=== PATIENT | female | born 1995 | race Caucasian/White ===

== ENCOUNTER 2017-01-02 08:15 | Emergency (ER) | payer BC, MEDICAID ==
[~2017-01-02] VITALS: Ht 157.5 cm; Wt 51.0 kg
[2017-01-02 08:17] VITALS: Ht 157.5 cm; Wt 51.0 kg
[2017-01-02 08:56] LABS: BASOPHILS % 0.5 % (0.0-2.0); EOSINOPHILS # 0.3 10^3/ul (0.0-0.5); EOSINOPHILS % 4.6 % (0.0-7.0); HEMOGLOBIN 13.3 g/dl (12.0-16.0); LYMPHOCYTES # 2.1 10^3/ul (0.8-2.9); LYMPHOCYTES % 34.2 % (15.0-51.0); MEAN CORPUSCULAR HEMOGLOBIN 30.9 pg (29.0-33.0); MEAN CORPUSCULAR HGB CONC 34.1 g/dl (32.0-37.0); MEAN CORPUSCULAR VOLUME 90.7 fl (82.0-101.0); MEAN PLATELET VOLUME 10.2 fl (7.4-10.4); MONOCYTE # 0.8 10^3/ul (0.3-0.9); MONOCYTES % 12.3 % (0.0-11.0); NEUTROPHIL # 2.9 10^3/ul (1.6-7.5); NEUTROPHILS % 48.1 % (39.0-77.0); PLATELET COUNT 261 10^3/UL (140-415); WHITE BLOOD COUNT 6.1 10^3/ul (4.8-10.8)
--- NOTE | 2017-01-02 08:58 | ERD ---
ER Documentation Chief Complaint Date/Time DATE: 01/02/17 TIME: 08:52 Chief Complaint 4/10 abd pain x 3 days HPI 21-year-old female complaining of mid abdominal pain 3 days. Patient stated that the pain had a sudden onset, shortly after she ate. The shape is sharp, but comes and goes. Eating does not make the pain worse, nothing makes the pain better. She does not have abdominal pain at this time. Denies fever or chills. Denies vomiting or diarrhea. Denies dysuria. Patient also complaining of a left breast mass 1 year. Denies pain or tenderness, denies changing size. Denies breast discharge. Denies recent weight loss. ROS All systems reviewed and are negative except as per history of present illness. Medications Home Meds Active Scripts Acetaminophen* (Tylophen*) 500 Mg Capsule, 1 CAP PO Q6H Y for PAIN AND OR ELEVATED TEMP, #20 CAP Prov:ANDRÉS LENNON Mic SACK KEEPER 01/02/17 Reported Medications [None] No Conflict Check 01/07/13 Allergies Allergies: Coded Allergies: No Known Allergy (Unverified , 01/02/17) PMhx/Soc Medical and Surgical Hx: pt denies Medical Hx History of Surgery: No Anesthesia Reaction: No Hx Neurological Disorder: No Hx Respiratory Disorders: No Hx Cardiac Disorders: No Hx Psychiatric Problems: No Hx Miscellaneous Medical Probl: No Hx Alcohol Use: Yes (Occasional) Hx Substance Use: No Hx Tobacco Use: No Smoking Status: Never smoker Physical Exam Vitals Vital Signs Date Time Temp Pulse Resp B/P Pulse Ox O2 Delivery O2 Flow Rate FiO2 01/02/17 10:26 97.9 70 16 118/64 98 Room Air 01/02/17 08:17 97.5 90 18 129/59 98 Physical Exam General: Well-developed, well-nourished, conscious and coherent, in no distress Skin: Warm and dry without rash, good texture and turgor Head: Normocephalic without evidence of trauma Eyes: Sclera and conjunctivae normal; pupils equal, round, and reactive to light; extraocular movements are intact Neck: Supple without meningismus or adenopathy. Carotids are equal. Trachea midline. No bruits or JVD Chest: Normal AP diameter. Good expansion without retractions. Nontender. Lungs are clear to auscultate bilaterally with good tidal volume Heart: Regular rate and rhythm. No murmur, rub, or gallops heard Breast: A 2 cm mobile mass noted at 12 o'clock position of the left breast, 3 cm from the nipple. The mass is not tender. Breast exam otherwise normal bilaterally, no axillary lymph nodes. Abdomen: Soft and nontender without masses, guarding, or rebound. Bowel sounds are active. No hepatosplenomegaly Back: Without spinal or CVA tenderness Extremities: Full range of motion. Good strength bilaterally. No clubbing, cyanosis, or edema. Peripheral pulses are intact. Sensation intact Neuro: Alert and oriented 4, GCS 15. Cranial nerves grossly intact. Motor and sensory exams nonfocal. Moves all extremities. Speech clear. Gait normal Result Diagram: 01/02/1743 01/02/1743 Results 24 hrs Laboratory Tests Test 01/02/17 08:43 White Blood Count 6.110^3/ul Red Blood Count 4.3010^6/ul Hemoglobin 13.3g/dl Hematocrit 39.0% Mean Corpuscular Volume 90.7fl Mean Corpuscular Hemoglobin 30.9pg Mean Corpuscular Hemoglobin Concent 34.1g/dl Red Cell Distribution Width 12.0% Platelet Count 94562^3/UL Mean Platelet Volume 10.2fl Neutrophils % 48.1% Lymphocytes % 34.2% Monocytes % 12.3% Eosinophils % 4.6% Basophils % 0.5% Nucleated Red Blood Cells % 0.0/100WBC Neutrophils # 2.910^3/ul Lymphocytes # 2.110^3/ul Monocytes # 0.810^3/ul Eosinophils # 0.310^3/ul Basophils # 0.010^3/ul Nucleated Red Blood Cells # 0.010^3/ul Urine Color YELLOW Urine Clarity CLEAR Urine pH 6.0 Urine Specific [place] 1.018 Urine Ketones NEGATIVEmg/dL Urine Nitrite NEGATIVEmg/dL Urine Bilirubin NEGATIVEmg/dL Urine Urobilinogen NEGATIVEmg/dL Urine Leukocyte Esterase NEGATIVELeu/ul Urine Microscopic RBC 17/HPF Urine Microscopic WBC 2/HPF Urine Hemoglobin 2+mg/dL Urine Glucose NEGATIVEmg/dL Urine Total Protein NEGATIVEmg/dl Sodium Level 144mmol/L Potassium Level 4.0mmol/L Chloride Level 103mmol/L Carbon Dioxide Level 26mmol/L Anion Gap 19 Blood Urea Nitrogen 10mg/dl Creatinine 0.56mg/dl Glucose Level 92mg/dl Calcium Level 9.4mg/dl Total Bilirubin 0.3mg/dl Direct Bilirubin 0.00mg/dl Indirect Bilirubin 0.3mg/dl Aspartate Amino Transf (AST/SGOT) 23IU/L Alanine Aminotransferase (ALT/SGPT) 29IU/L Alkaline Phosphatase 68IU/L Total Protein 7.9g/dl Albumin 4.5g/dl Globulin 3.40g/dl Albumin/Globulin Ratio 1.32 Lipase 52U/L PROCEDURE: Left breast ultrasound, complete. CLINICAL INDICATION: 21-year-old female with multiple palpable mass at the 12 o'clock left breast. TECHNIQUE: Whole breast ultrasound is performed. COMPARISON: None FINDINGS: Ultrasound of the breast shows a circumscribed oval 1.7 x 1.6 x 1.1 cm mass at the 12 o'clock left breast correlating to the palpable lump. The remainder of the left breast ultrasound is unremarkable. There is no evidence of axillary adenopathy. IMPRESSION: Benign appearing oval circumscribed 1.7 cm mass at the 12 o'clock left breast correlating to the palpable mobile lump. 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 Recommend 6-month follow-up targeted left breast ultrasound at a dedicated breast imaging Center to confirm benignity. BIRADS 3 (Probably benign). Short-term follow-up is advised. RPTAT: GG .Kervin Bhatt MD, MD Date Time Electronically viewed and signed by .Kervin Bhatt MD, on 01/02/2017 09:51 .L/ CC: ANDRÉS LENNON SACK KEEPER Procedures/MDM Well-appearing 21-year-old female presented ED with intermittent periumbilical abdominal pain 3 days. She does not have any abdominal pain at this time, nausea she have any abdominal tenderness on exam. CBC, CMP, lipase, UA are all unremarkable. I doubt acute appendicitis, cholecystitis, pancreatitis, bowel obstruction, or other acute abdomen. I doubt urinary tract infection or pyelonephritis. Urine is negative. I doubt ectopic , ovarian torsion, or ruptured ovarian cyst. Patient's symptoms is consistent with that of viral gastroenteritis. Patient does not have any active vomiting, is able to maintain by mouth fluid intake. Patient also complaining of left breast mass 1 year. Ultrasound left breast showed a benign mass, likely fibroadenoma. Patient advised to follow-up with her PCP for further evaluation. Patient appears well, stable for discharge and outpatient management. Medical decision making shared with patient and family. Education provided to patient and family. Patient and family expressed understanding of the plan. Medications on discharge: Tylenol. Follow-up: Primary care provider in 2-3 days or return to ED if worse. Disclaimer: Inadvertent spelling and grammatical errors are likely due to EHR/ dictation software use and do not reflect on the overall quality of patient care. Also, please note that the electronic time recorded on this note does not necessarily reflect the actual time of the patient encounter. Departure Diagnosis: Primary Impression: Abdominal pain Abdominal location: periumbilical Qualified Code: R10.33 - Periumbilical abdominal pain Additional Impression: Left breast mass Condition: Stable ANDRÉS LENNON NP Jan 02, 2017 08:58
[2017-01-02 09:01] LABS: ADD UMIC YES; UR ASCORBIC ACID NEGATIVE (NEGATIVE); UR BILIRUBIN (Dip) NEGATIVE (NEGATIVE); UR BLOOD (Dip) 2+ mg/dL (NEGATIVE); UR CLARITY CLEAR (CLEAR); UR COLOR YELLOW (YELLOW); UR GLUCOSE (Dip) NEGATIVE (NEGATIVE); UR KETONES (Dip) NEGATIVE (NEGATIVE); UR LEUKOCYTE ESTERASE (Dip) NEGATIVE Leu/ul (NEGATIVE); UR NITRITE (Dip) NEGATIVE (NEGATIVE); UR RBC 17 /HPF (0-5); UR SPECIFIC GRAVITY (Dip) 1.018 (1.003-1.030); UR TOTAL PROTEIN (Dip) NEGATIVE (NEGATIVE); UR UROBILINOGEN (Dip) NEGATIVE (NEGATIVE)
[2017-01-02 09:12] LABS: ALBUMIN 4.5 g/dl (3.3-4.9); ALBUMIN/GLOBULIN RATIO 1.32; BILIRUBIN,INDIRECT 0.3 mg/dl (0-1.1); BILIRUBIN,TOTAL 0.3 mg/dl (0.2-1.3); CALCIUM 9.4 mg/dl (8.4-10.2); CREATININE 0.56 mg/dl (0.44-1.00); TOTAL PROTEIN 7.9 g/dl (6.1-8.1)
--- NOTE | 2017-01-02 09:51 | RADRPT ---
PROCEDURE: Left breast ultrasound, complete. CLINICAL INDICATION: 21-year-old female with multiple palpable mass at the 12 o'clock left breast. TECHNIQUE: Whole breast ultrasound is performed. COMPARISON: None FINDINGS: Ultrasound of the breast shows a circumscribed oval 1.7 x 1.6 x 1.1 cm mass at the 12 o'clock left b reast correlating to the palpable lump. The remainder of the left breast ultrasound is unremarkable. There is no evidence of axillary adenopathy. IMPRESSION: Benign appearing oval circumscribed 1.7 cm mass at the 12 o'clock left breast correlating to the pal pable mobile lump. 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 Recommend 6-month follow-up targeted left breast ultrasound at a dedicated breast imaging Center to confirm benignity. BIRADS 3 (Probably benign). Short-term follow-up is advised. RPTAT: GG .Kervin Bhatt MD, Date Time Electronically viewed and signed by .Kervin Bhatt MD, on 01/02/2017 09:51 .L/
[2017-01-02] MEDS ORDERED: ACET500C5 PO (10:14)
[2017-01-02 10:26] VITALS: BP 118/64; PULSE 70; RESP 16; TEMP 97.9
== END 2017-01-02 10:27 | disposition home or self-care (01) ==
LOC: FTE 08:15
DX: R10.33 Periumbilical pain (principal); N63 Unspecified lump in breast
CPT/HCPCS: 36415; 76642; 80053; 81001; 83690; 85025

== ENCOUNTER → 2018-12-09 | Emergency (ER) | payer MEDICAID ==
[~2018-12-09] VITALS: Ht 154.9 cm; Wt 52.3 kg
[~2018-12-09] MED LIST: ACET500C5 PO
[2018-12-09 01:34] VITALS: BP 114/72; PULSE 97; RESP 18; Ht 154.9 cm; Wt 52.3 kg
--- NOTE | 2018-12-09 02:05 | ERD ---
ER Documentation Chief Complaint Chief Complaint LAC TO L EYEBROW S/P TRIP AND FALL HPI 23-year-old from presents for left eyebrow laceration status post fall today. She was dancing and tripped. She had a left side of her eyebrow on the corner of a desk. Denies loss of consciousness or vomiting. No confusion noted. Patient states that she currently has 5 out of 10 pain. Pain is nonradiating. Described as a burning sensation. No other modifying factors noted, no treatment tried at home. ROS All systems reviewed and are negative except as per history of present illness. Medications Home Meds Active Scripts Acetaminophen* (Tylophen*) 500 Mg Capsule, 1 CAP PO Q6H PRN for PAIN AND OR ELEVATED TEMP, #20 CAP Prov:ANDRÉS LENNON NP 01/02/17 Reported Medications [None] No Conflict Check 01/07/13 Allergies Allergies: Coded Allergies: No Known Allergy (Unverified , 01/02/17) PMhx/Soc Medical and Surgical Hx: pt denies Medical Hx, pt denies Surgical Hx History of Surgery: No Anesthesia Reaction: No Hx Neurological Disorder: No Hx Respiratory Disorders: No Hx Cardiac Disorders: No Hx Psychiatric Problems: No Hx Miscellaneous Medical Probl: No Hx Alcohol Use: Yes (Occasional) Hx Substance Use: No Hx Tobacco Use: No Smoking Status: Never smoker FmHx Family History: No coronary disease Physical Exam Vitals Vital Signs Date Temp Pulse Resp B/P (MAP) Pulse Ox O2 O2 Flow FiO2 Time Delivery Rate 12/09/18 97.0 97 18 114/72 97 01:34 (86) Physical Exam Const: No acute distress Neck: Full range of motion. No meningismus. Resp: Clear to auscultation bilaterally Cardio: Regular rate and rhythm, no murmurs Abd: Soft, non tender, non distended. Normal bowel sounds Skin: Left upper eyebrow 2 cm laceration noted with no active bleeding Back: No midline or flank tenderness Ext: No cyanosis, or edema Neur: Awake and alert Psych: Normal Mood and Affect Procedures/MDM Medical Decision Making: Patient presents for left eyebrow laceration Patient appeared well on physical exam. Bleeding was controlled. The laceration site was irrigated Laceration was repaired, see procedure note below Laceration Repair by me: Anesthesia: None Location: Left eyebrow Tendon/Joint/Nerves: No injury Foreign body: None detected after copious irrigation and exploration Technique: Dermabond Complexity: No subcutaneous sutures/mucosal repair/edge excision Post Closure Length: 2 cm Patient's bleeding was easily controlled in the department and there is no indication of anemia. No evidence of compartment syndrome, neurologic injury, vascular injury, open joint, tendon laceration, or foreign body. Patient is appropriate for outpatient follow up. 48 hour wound check. Scar minimization instructions given. Patient advised to follow up with PCP in 1-2 days. Patient advised to return to ED for new or worsening symptoms. Patient stable on discharge from the ED. Disclaimer: Inadvertent spelling and grammatical errors are likely due to EHR/dictation software use and do not reflect on the overall quality of patient care. Also, please note that the electronic time recorded on this note does not necessarily reflect the actual time of the patient encounter. Departure Diagnosis: Primary Impression: Laceration Condition: Fair Patient Instructions: Laceration, Face (Skin Glue) Additional Instructions: Call your primary care doctor TOMORROW for an appointment during the next 1-2 days.See the doctor sooner or return here if your condition worsens before your appointment time. MARILUZ REDDY DO Dec 09, 2018 02:05
== END | disposition home or self-care (01) ==
LOC: FTE 01:31
DX: S01.112A Laceration without foreign body of left eyelid and periocular area, initial encounter (principal); W26.8XXA Contact with other sharp object(s), not elsewhere classified, initial encounter; Y92.9 Unspecified place or not applicable
CPT/HCPCS: 12011; Z7502; Z7610